=== PATIENT | male | born 1960 | race Caucasian/White ===

== ENCOUNTER 2023-03-10 09:11 | Emergency (ER) | payer MEDICAID, SELFPAY ==
[2023-03-10 09:22] VITALS: BP 120/74; PULSE 88; RESP 18; TEMP 36.9; O2SAT 97; BMI 24.4
--- NOTE | 2023-03-10 11:11 | ED_ITS ---
HPI - General Adult General Chief complaint: General Medical Stated complaint: + covid symptons Time Seen by Provider: 03/10/23 11:10 Source: patient, RN notes reviewed and old records reviewed Mode of arrival: ambulatory History of Present Illness HPI narrative: 63-year-old male with no significant past medical history presenting to ED complaining of low-grade fever T-max 99 degrees, congestion, sore throat, productive cough, and myalgias since yesterday. Admits tested positive for COVID-19 on to home tests yesterday. Took Tylenol this morning, denies taking any antipyretics today. Denies difficulty/inability to swallow, ear pain, SOB/CP, sick contacts, recent travel Related Data Allergies Allergy/AdvReac Type Severity Reaction Status Date / Time No Known Allergies Allergy Unverified 04/13/20 15:14 Review of Systems Review of Systems: Constitutional: + Fever, + Chills ENT/Mouth: No Ear Pain, + Nasal Congestion, No Sinus Pain, No Hoarseness, + sore throat, + Rhinorrhea, No Swallowing Difficulty Cardiovascular: No Chest Pain, No SOB Respiratory: + Cough, +Sputum, No Wheezing Gastrointestinal: No Nausea, No Vomiting, No Abdominal pain Genitourinary: No Dysuria, No Hematuria, No Flank Pain Musculoskeletal: No joint pain, No Myalgias, No Joint Swelling Skin: No Skin Lesions, No rash Neuro: No Weakness Yes all other systems are reviewed and are negative Constitutional: Constitutional: Reports as per [facility] Past Medical History Attestation statement: The following information was validated with the patient. Source: old records reviewed Social History Social History Advance Directives: No Advance Directives Information Provided: No Physical Exam ED Vital Signs: Vital Signs - 24 hr 03/10/23 09:22 Temperature 98.5 F Pulse Rate 88 Respiratory Rate 18 Blood Pressure 120/74 Pulse Oximetry 97 Oxygen Delivery Method Room Air BMI result Body Mass Index 24.4 Const General: cooperative, healthy appearing, no acute distress, alert and awake Orientation/consciousness: patient oriented x3 Limitations: no limitations HENMT Head: Yes normal to inspection and Yes atraumatic Ears: hearing grossly normal bilaterally and external ears normal General nose exam: Normal external nose present Face and sinus: Yes normal facial exam Mouth: Normal oral and palatal mucosa present Throat: Yes uvula midline, No peritonsillar mass and Yes posterior oropharynx abnormal (mildly erythematous) Eyes General: appearance normal, both eyes and all related structures EOM: EOMs intact bilaterally Neck Neck: Yes normal visual inspection and Yes no meningeal signs Resp Effort & Inspection: normal respiratory effort, no respiratory distress and no stridor Auscultation: clear to auscultation bilaterally, no crackles and no wheezes Cardio Rate: regular rate Heart sounds: S1 normal heart sound present and S2 normal heart sound present Skin Rashes: no rashes Wounds: no wounds Neuro General: patient oriented x3, tone normal and no meningeal signs Cranial nerves: Yes CN's II-XII intact bilaterally Gait exam (Neuro): Normal gait present Extrem General: Yes normal to inspection Course Course Course Narrative: -patient refusing x-ray would like to be discharged Results discussed with patient including worrisome signs and symptoms and strict return precautions, and when to return to the emergency department. They verbalized understanding and feel safe for discharge at this time. Medical Decision Making Medical Decision Making [facility] Narrative: 63-year-old male with no significant past medical history presenting to ED complaining of low-grade fever T-max 99 degrees, congestion, sore throat, productive cough, and myalgias since yesterday. On exam vital signs stable, afebrile, nontoxic appearing, lungs CTA, or pharynx with mild erythema, no tonsillar exudates. Uvula midline, talking complete sentences. Concern for COVID-19/viral syndrome. Rule out pneumonia. Lower suspicion for ACS/PE Plan: X-ray Please refer to course for remaining clinical decision making, interpretation of labs/imaging results, and discussions with consultants and/or family members. Differential Diagnosis Differential Diagnoses: The differential diagnosis associated with the presentation includes As above Admission/Observation Consideration of admission/observation: Escalation of care including admission/observation considered Independent Interpretation I performed an independent interpretation of an: Plain X-Ray Radiology Impression Discussion of test interpretation with radiology: I have reviewed the radiologist's reading. External Record Review External record reviewed: Inpatient record, Office record, Outpatient record, Prior outpatient labs, Prior outpatient radiology, Primary care record and Outside ED record Tests considered The following testing was considered but not selected: As above Prescription Management I considered prescription management with: Pain Medication and Antiviral Discharge Plan Discharge Patient Disposition: Home, Self-Care Interventions: ED Discharge Assessment Last Done: 03/10/23 11:12
--- NOTE | 2023-03-10 11:12 | PC.NURSE ---
eval and dc by [facility]
== END 2023-03-10 11:34 | disposition home or self-care (01) ==
PROVIDERS: Emergency Provider Emergency Medicine
DX: U07.1 COVID-19 (principal)
CPT/HCPCS: 99282